=== PATIENT | female | born 1985 | race Caucasian/White ===

== ENCOUNTER 2023-12-11 18:55 | Emergency (ER) | payer MEDICAID ==
[~2023-12-11] VITALS: Ht 157.5 cm; Wt 54.4 kg
[2023-12-11 19:10] VITALS: BP 186/109; PULSE 112; TEMP 99; O2SAT 100
[2023-12-11] MEDS ORDERED: AMOX-117 PO (19:43)
[2023-12-11 19:51] VITALS: RESP 16
[2023-12-11] MEDS: ketorolac trometh inj. 60 MG/2 ML VIAL IM ONE (19:51)
[2023-12-11] MEDS: amox tr/potassium clavulanate 875/125mg TAB PO ONE (20:10)
== END 2023-12-11 20:14 | disposition home or self-care (01) ==
LOC: ER 18:56
DX: K04.7 Periapical abscess without sinus (principal)
CPT/HCPCS: 96372; 99284; J1885